=== PATIENT | female | born 1975 | race Caucasian/White ===

== ENCOUNTER 2022-06-21 17:27 | Emergency (ER) | payer MEDICAID, SELFPAY ==
[2022-06-21 17:41] VITALS: BP 116/82; PULSE 99; RESP 18; TEMP 37.1; O2SAT 97; BMI 32.5
[2022-06-21 18:27] LABS: Lactate Sepsis w/Reflex* 0.8 mmol/L (0.5-1.9)
[2022-06-21 18:30] LABS: Basophils Absolute Auto 0.04 K/uL (0.00-0.30); Basophils Percent Auto 0.4 % (0.0-3.0); Eosinophils Absolute Auto 0.33 K/uL (0.00-0.50); Eosinophils Percent Auto 3.1 % (0.0-7.0); Hematocrit 40.7 % (33.0-51.0); Hemoglobin* 13.6 gm/dL (12.0-16.0); Immature Granulocytes Abs Auto 0.02 K/uL (0.00-0.30); Lymphocytes Percent Auto 17.5 % (20-44); Mean Corpuscular HGB Conc 33 gm/dL (32-36); Mean Corpuscular Hemoglobin 32 pg (26-34); Mean Corpuscular Volume 95 fL (80-100); Monocytes Percent Auto 8.3 % (0.0-11.0); Neutrophils Absolute Auto 7.57 K/uL (1.7-7.0); Neutrophils Percent Auto 70.5 % (42.0-72.0); Platelet Count* 370 K/uL (140-440); RDW Coefficient of Variation % 13.1 % (11.5-15.5); White Blood Count* 10.73 K/uL (4.50-11.00)
[2022-06-21 18:35] LABS: Slide Review Reflex No
[2022-06-21 18:42] LABS: Chloride* 107 mmol/L (96-114); Potassium* 4.3 mmol/L (3.6-5.1); Sodium* 138 mmol/L (135-149)
[2022-06-21 18:44] LABS: Bilirubin Total* 0.5 mg/dL (0.1-1.5); Carbon Dioxide* 26 mmol/L (20-32); Est. Creatinine Clearance* 78.53; Estimated Glomerular Filt Rate 69 ml/min
[2022-06-21 18:45] LABS: Alanine Aminotransferase* 16 U/L (4-35); Alkaline Phosphatase* 89 U/L (40-150); Aspartate Amino Transferase* 21 U/L (12-35); Blood Urea Nitrogen* 15 mg/dL (5-24); Glucose* 95 mg/dL (60-115); Total Protein* 7.3 g/dL (6.0-8.3)
[2022-06-21 18:46] LABS: Calcium* 8.7 mg/dL (8.4-10.6)
--- NOTE | 2022-06-21 19:17 | ED_ITS ---
HPI - Abdominal Pain General Chief Complaint: Abdominal Pain Stated Complaint: Diverticulitis Pain Time Seen by Provider: 06/21/22 17:51 Source: patient and family Mode of arrival: ambulatory Limitations: no limitations History of Present Illness HPI narrative: 47yo female with h/o recently diagnosed (and treated) diverticulitis that presents with abdominal pain in the LLQ, well localized. Patient describes the p ain as sharp, stabbing in nature. The patient reports the pain has been persistent for 1.5days, with recurrence one night prior to presentation after advancing diet and eating tomatoes the day prior to presentation. The patient also reports history of bloating and gas, but she denies nausea, vomiting, or constipation. The patient has recently been treated for the diverticulitis and was placed on augmentin. The patient reports taking medication for the last several days with improvement in symptoms. The patient reports not taking OTC medication. The patient is able to tolerate PO intake, but definitely worsened with advancing and inflammatory foods. The patient reports eating worsens symptoms. The patient states that she has had no known sick contacts, no recent changes in diet, no travel. Related Data Home Medications Medication Instructions Recorded Confirmed amoxicillin 875 mg-potassium tab 06/21/22 clavulanate 125 mg tablet gabapentin 600 mg tablet mg 06/21/22 levothyroxine 175 mcg tablet mcg 06/21/22 Allergies Allergy/AdvReac Type Severity Reaction Status Date / Time metronidazole [From Flagyl] Allergy Verified 06/21/22 17:41 Review of Systems Const Denies: fever, chills, fatigue or malaise ENMT Denies: throat pain or difficulty swallowing Cardio Denies: chest pain or shortness of breath with exertion Resp Denies: shortness of breath or cough GI Reports: abdominal pain and diarrhea (loose stools noted); Denies: nausea, vomiting, heartburn, constipation, bloating, belching, excessive passing of gas, difficulty swallowing, feeling full early, change in bowel habits or blood in stool Denies: painful urination, urinary frequency, urinary urgency or blood in urine Neuro Denies: headache Endo Denies: fatigue Exam Const: Vital Signs, click to edit/add: Vital Signs - 24 hr 06/21/22 17:41 Temperature 98.7 F Pulse Rate [Right Pulse Oximeter] 99 Respiratory Rate 18 Blood Pressure [Ri ght Upper Arm] 116/82 Pulse Oximetry 97 Oxygen Delivery Me thod Room Air Documenting provider has reviewed patient's vital signs: yes Common normals: no apparent distress, oriented x3, no limitations, healthy appearing, alert and well nourished General appearance: cooperative, comfortable and well developed; not in distress Orientation/consciousness: Yes awake, Yes oriented to person, Yes oriented to place and Yes oriented to time HENMT: Common normals: normocephalic and head/scalp atraumatic Head and scalp: normocephalic and atraumatic Face and sinus: normal facial exam (limited by masking) Eye: Common normals: EOMs intact bilaterally General eye: normal appearance of both eyes Resp: Common normals: normal respiratory effort, no retractions, no use of accessory muscles and clear to auscultation bilaterally Effort & inspection: able to speak in complete sentences Auscultation: clear to auscultation bilaterally Cardio: Common normals: regular rate, regular rhythm, S1 normal heart sound, S2 normal heart sound, no gallops, no clicks and no murmurs Rate: regular rate Rhythm: regular rhythm Heart sounds: S1 normal and S2 normal GI: Common normals: Normal to inspection, nondistended, normoactive bowel sounds present and soft to palpation Palpation: soft and tender (LLQ) Details: LLQ : Common normals: no CVA tenderness Bladder/kidney exam: no CVA tenderness Back & Pelvis: Common normals: no CVA tenderness Extremity: Common normals: normal to inspection, full ROM and no clubbing, cyanosis or edema Neuro: Common normals: oriented x3, CN's II-XII intact bilaterally, moves all extremities, no focal motor deficits and no sensory deficits noted Sensorium/orientation: awake, alert, oriented to person, oriented to place and oriented to time Gait (neuro): normal gait Sensory exam: double simultaneous stimulation for sensation normal Motor exam: no movement abnormalities noted Psych: Common normals: mental status grossly normal, thought process normal and speech normal Appearance: grossly normal Attitude: calm Speech: normal speech Thought process: normal thought process Thought content: normal thought content Attention/concentration: attention grossly intact Memory/cognition: memory grossly intact Insight: insight good Judgement: judgment good Skin: Common normals: no rashes or lesions noted General skin exam: no rashes or lesions noted Course Course Hospital Course: Jocelynn presented to the emergency department for further evaluation of recurrent pain in the setting of being treated for diverticulitis. She has advanced her diet to include inflammatory foods such as tomatoes and noted severe discomfort afterward. Patient states she has been taking her antibiotics as directed. She was doing well while on clear and advanced to a bland diet. When she attempted to advance to routine, typical intake she noted increase in pain and discomfort. She has had normal bowel sounds, bowel movements, and has been passing gas without difficulty. She denies other acute concerns or complaints. She had laboratory studies to confirm no recurrence of inflammatory condition with negative findings noted. She has required no additional treatment in the the [facility] ency department and reports her pain is well controlled at present. She was re- educated on slow advance of dietary intake and to return if she has new or worsening concerns. She was not image during this encounter, however, she was advised to return if she has worsening concerns for re-evaluation and consideration of imaging. Vital Signs Vital signs: Initial Vital Signs Temperature 98.7 F 06/21/22 17:41 Temperature Source Temporal Artery Scan 06/21/22 17:41 Pulse Rate 99 06/21/22 17:41 Respiratory Rate 18 06/21/22 17:41 Blood Pressure 116/82 06/21/22 17:41 Blood Pressure Mean 93 06/21/22 17:41 Blood Pressure Position Sitting 06/21/22 17:41 Pulse Oximetry 97 06/21/22 17:41 Oxygen Delivery Method 06/21/22 17:41 Vital Signs Temperature 98.7 F 06/21/22 17:41 Pulse Rate 99 06/21/22 17:41 Respiratory Rate 18 06/21/22 17:41 Blood Pressure 116/82 06/21/22 17:41 Pulse Oximetry 97 06/21/22 17:41 Oxygen Delivery Method 06/21/22 17:41 Temperature 98.7 F 06/21/22 17:41 Pulse Rate 99 06/21/22 17:41 Respiratory Rate 18 06/21/22 17:41 Blood Pressure 116/82 06/21/22 17:41 Pulse Oximetry 97 06/21/22 17:41 Oxygen Delivery Method 06/21/22 17:41 MDM - Abdominal Pain MDM Narrative Medical decision making narrative: During the evaluation of this patient consider multiple differential diagnosis considerations. The life-threatening differential diagnoses considered include: Appendicitis, aortic aneurysm, mesenteric ischemia, bowel perforation, volvulus, and bowel obstruction. Other differential diagnoses include but are not limited to: Inflammatory bowel disease, cholecystitis, pancreatitis, hepatitis, gastritis, GERD, diverticulitis, peptic ulcer disease, pyelonephritis/UTI, renal colic/stone, diseases of the genitourinary system and reproductive system, as well as the other etiologies. Lab Data Attestation: I reviewed the patient's lab results. Labs: Lab Results 06/21/22 06/21/22 06/21/22 Range/Units 18:15 18:15 18:15 WBC 10.73 (4.50-11.00) K/uL RBC 4.30 (4.00-5.20) m/uL Hgb 13.6 (12.0-16.0) gm/dL Hct 40.7 (33.0-51.0) % MCV 95 (80-100) fL MCH 32 (26-34) pg MCHC 33 (32-36) gm/dL RDW Coeff of Radha 13.1 (11.5-15.5) % Plt Count 370 (140-440) K/uL Neut % (Auto) 70.5 (42.0-72.0) % Lymph % (Auto) 17.5 L (20-44) % [place] % (Auto) 8.3 (0.0-11.0) % Eos % (Auto) 3.1 (0.0-7.0) % Baso % (Auto) 0.4 (0.0-3.0) % Neut # (Auto) 7.57 H (1.7-7.0) K/uL Lymph # (Auto) 1.90 (0.90-2.90) K/uL [place] # (Auto) 0.90 (0.00-0.90) K/UL Eos # (Auto) 0.33 (0.00-0.50) K/uL Baso # (Auto) 0.04 (0.00-0.30) K/uL Abs Immat Gran (auto) 0.02 (0.00-0.30) K/uL Sodium 138 (135-149) mmol/L Potassium 4.3 (3.6-5.1) mmol/L Chloride 107 (96-114) mmol/L Carbon Dioxide 26 (20-32) mmol/L BUN 15 (5-24) mg/dL Creatinine 1.0 (0.5-1.5) mg/dL Estimated Creat Clear 78.53 Estimated GFR 69 ml/min Glucose 95 (60-115) mg/dL Venous Lactic Acid (Serial Order) Calcium 8.7 (8.4-10.6) mg/dL Total Bilirubin 0.5 (0.1-1.5) mg/dL AST 21 (12-35) U/L ALT 16 (4-35) U/L Alkaline Phosphatase 89 (40-150) U/L Total Protein 7.3 (6.0-8.3) g/dL Albumin 4.0 (3.3-5.0) g/dL Discharge Plan Discharge Clinical Impression: Diverticulitis Patient Disposition: Home, Self-Care Condition: Stable Instructions: Diverticulitis Diet (ED) Additional Instructions: Thank you for choosing [facility] for your care today. Drink plenty of water and consider using electrolyte replacement like Gatorade or substitute. Add probiotic of choice - Apto, [employer], or Kefir - or substitute. Eat a bland diet and advance as tolerated. Diet should include bananas, rice, applesauce, and toast (BRAT diet) and other bland foods. Slowly advance diet as tolerated. Consider the use of a daily coconut oil supplement, apple cider vinegar supplement, or magnesium oxide. If your symptoms worsen or persist, consider further evaluation and treatment including labs and imaging. I recommend calling primary care for follow-up in the next 3-5 days for reevaluation of symptoms. If new or worsening symptoms develop or you have any concerns in the meantime, please call your primary care clinic or return to the ER for re-evaluation. Activity Level: Activity as Tolerated Discharge Diet: Clear Liquid Diet Detail: Advance as tolerated, avoid inflammatory foods such as dairy, pork, citrus, and tomato based. Prescriptions: No Action levothyroxine 175 mcg tablet Label Comments: TAKE 1 TABLET BY MOUTH BEFORE BREAKFAST. gabapentin 600 mg tablet Label Comments: TAKE ONE TABLET (600MG) BY MOUTH THREE TIMES DAILY amoxicillin-pot clavulanate 875-125 mg tablet Label Comments: TAKE ONE TABLET BY MOUTH IN THE MORNING AND IN THE EVENING WITH MEALS FOR 10 DAYS Follow Up/Referrals: Provider,Not a Local [Primary Care Provider] - Stand Alone Forms: [employer] Info Instructions
[2022-06-21 19:44] VITALS: BP 124/90; PULSE 90; RESP 16; O2SAT 98
== END 2022-06-21 19:54 | disposition home or self-care (01) ==
PROVIDERS: Emergency Provider Family Medicine; PCP Family Medicine
DX: K57.92 Diverticulitis of intestine, part unspecified, without perforation or abscess without bleeding (principal)
CPT/HCPCS: 36415; 80053; 85025; 99282; 99283

== ENCOUNTER 2024-01-16 12:46 | Outpatient (CLI) | payer BC, SELFPAY ==
--- NOTE | 2024-01-16 13:00 | MR_ITS ---
[address] [address] Phone:?[phone] Fax:?[phone] Referring Physician Information: Kishore Lang M.D. [id number] [facility] [address] Phone:?[phone] Fax:?[phone] Patient:Ralph Torre D.O.B:?1975 Sex:?Female Phone:?[phone] [facility] MRN:?[id number] Exam Date:?01/16/2024 EXAM: MRI of the RIGHT KNEE, without contrast CLINICAL INFORMATION: Female, 48 years old, with right knee pain INDICATION: Evaluate for meniscus tear, arthritis PRIOR SURGERY: None reported. PLAIN FILMS: None available. COMPARISONS: Knee MRI 07/25/2022. TECHNICAL INFORMATION: Using a 1.5T MR scanner and a localizing surface coil: sagittals: PD, PDFS coronals: PD, T2FS axials: PD, PDFS SEDATION: None CONTRAST: None FINDINGS: Knee joint: Effusion: Moderate size right knee effusion. Popliteal cyst: None. Loose bodies: None. Subcutaneous and extra-articular soft tissues: Mild prepatellar subcutaneous soft tissue edema. Ligaments: ACL: Intact ACL anteromedial and posterolateral bundles, without sprain or tear. PCL: Intact PCL, without acute or chronic injury. MCL: Thickening of the proximal superficial MCL, consistent with residua of incomplete sprain injury, similar to prior. LCL: Intact LCL, without injury. Posterolateral corner: No posterolateral corner soft tissue injury. Popliteus, biceps femoris, iliotibial band, popliteofibular ligament and lateral gastrocnemius are intact. Posteromedial corner: No posteromedial corner soft tissue injury. Semimembranosus, pes anserine tendons and posterior oblique ligament are without injury, tendinopathy or bursitis. Extensor mechanism: Patellar tendon: Intact, without tendinopathy. Quadriceps tendon: Intact, without tendinopathy. Retinacula: Medial and lateral retinacula are intact. Fat pads: Unremarkable infrapatellar Hoffa's, quadriceps and prefemoral fat pads. Medial compartment: Medial meniscus: Medial meniscus is abnormal in appearance. There is truncation/radial tearing involving the inner third at the level of the body segment with torn meniscal tissue flipped and displaced inferiorly into the medial gutter, measuring approximately 7 mm. Meniscal tissue is peripherally displaced approximately 7 mm, as well. This is new compared to the prior exam. Previously seen horizontal oblique undersurface tearing to the posterior horn is progressed, with superimposed poorly defined degeneration and fraying not present, as well. The posterior root of the meniscus is intact. Medial femoral condyle: Broad-based grade 3 chondral thinning along the weightbearing surface of the medial femoral condyle, progressed from the prior exam. Minimal peripheral osseous spurring. Medial tibial plateau: Grade 2 chondral thinning along the central weightbearing medial tibial plateau, overall similar to prior. Lateral compartment: Lateral meniscus: Poorly defined intrasubstance and horizontal undersurface tearing along the posterior horn/root of the lateral meniscus (sagittal series 7 images 13-14). The meniscofemoral ligament appears intact. Superimposed complex tearing at the level of the body segment with superior and inferior articular surface component (coronal series 9 image 22). Lateral femoral condyle: Chondromalacia with grade II/III chondral thinning along the central weightbearing surface of the lateral femoral condyle. Lateral tibial plateau: Grade II/III chondromalacia along the posterior lateral tibial plateau. Patellofemoral joint: Patella: Diffuse grade 2 chondral thinning of the patellar articular cartilage is shallow fraying of the central median ridge. Trochlea: Small region of grade III chondromalacia of the mid lateral trochlea measuring 1.2 x 1.1 cm with underlying cystic change and marrow edema. Proximal tibiofibular joint: Unremarkable, without evidence of ligament sprain injury, joint effusion or adjacent marrow edema. Bones: No stress/occult fractures or other marrow edema/pathology. IMPRESSION: 1. Truncation/radial tearing of the body segment medial meniscus with torn meniscal tissue flipped and displaced inferiorly into the medial gutter, measuring up to 7 mm, with additional 7 mm peripheral meniscal extrusion at the level of the body. Progressed horizontal oblique undersurface tearing along the posterior horn of the meniscus. 2. Short segment tearing of the body and posterior horn/root of the lateral meniscus, new from the prior exam. 3. Mild toward moderate medial compartment degenerative change, progressed from prior. 4. Mild lateral and patellofemoral joint degenerative change. 5. Suspected residua of chronic superficial MCL sprain injury. No acute cruciate or collateral ligament pathology. 6. Moderate size knee joint effusion. KME Electronically signed on 01/18/2024 8:24:00 AM by Edita La M.D.
== END 2024-01-16 12:47 | disposition home or self-care (01) ==
LOC: MRI 12:47
PROVIDERS: PCP Family Medicine; Visit Provider Orthopaedic Surgery
DX: M25.561 Pain in right knee (principal); S83.241A Other tear of medial meniscus, current injury, right knee, initial encounter; S83.411A Sprain of medial collateral ligament of right knee, initial encounter; M25.461 Effusion, right knee; M17.11 Unilateral primary osteoarthritis, right knee; M23.300 Other meniscus derangements, unspecified lateral meniscus, right knee; M23.303 Other meniscus derangements, unspecified medial meniscus, right knee
CPT/HCPCS: 73721

== ENCOUNTER 2024-02-06 07:30 | Outpatient (RCR) | payer BC, SELFPAY | END 2024-06-05 23:59 | disposition home or self-care (01) | PROVIDERS: PCP Family Medicine; Visit Provider Student in an Organized Health Care Education/Training Program | DX: M99.05 Segmental and somatic dysfunction of pelvic region (principal); R33.9 Retention of urine, unspecified; R15.0 Incomplete defecation; R39.198 Other difficulties with micturition; R10.32 Left lower quadrant pain; Z98.890 Other specified postprocedural states; Z51.89 Encounter for other specified aftercare | CPT/HCPCS: 97110; 97112; 97162 ==

== ENCOUNTER 2024-05-01 11:00 | Outpatient (RCR) | payer BC, SELFPAY | END 2024-08-29 23:59 | disposition home or self-care (01) | PROVIDERS: PCP Family Medicine; Visit Provider Family Medicine | DX: M25.561 Pain in right knee (principal); G62.9 Polyneuropathy, unspecified; M17.0 Bilateral primary osteoarthritis of knee; S83.231A Complex tear of medial meniscus, current injury, right knee, initial encounter; M16.11 Unilateral primary osteoarthritis, right hip; S81.011A Laceration without foreign body, right knee, initial encounter; K66.0 Peritoneal adhesions (postprocedural) (postinfection); M25.551 Pain in right hip; R26.9 Unspecified abnormalities of gait and mobility; R53.1 Weakness; Z51.89 Encounter for other specified aftercare | CPT/HCPCS: 97110; 97140; 97162; J0330; J1100; J2371; J2405; J2704; J2710; J3010 ==

== ENCOUNTER 2024-09-24 08:30 | Outpatient (RCR) | payer BC, SELFPAY | END 2025-03-28 23:59 | disposition home or self-care (01) | PROVIDERS: PCP Family Medicine; Visit Provider Surgery | DX: M17.11 Unilateral primary osteoarthritis, right knee (principal); N31.9 Neuromuscular dysfunction of bladder, unspecified; Z51.89 Encounter for other specified aftercare | CPT/HCPCS: 97140; 97163; 97530 ==

== ENCOUNTER 2024-09-25 08:15 | Outpatient (RCR) | payer BC, SELFPAY | END 2025-01-23 23:59 | disposition home or self-care (01) | PROVIDERS: PCP Family Medicine; Visit Provider Marriage & Family Therapist | DX: M54.2 Cervicalgia (principal); G43.909 Migraine, unspecified, not intractable, without status migrainosus; Z74.09 Other reduced mobility; Z51.89 Encounter for other specified aftercare | CPT/HCPCS: 97140; 97162 ==

== ENCOUNTER 2024-10-15 11:13 | Day surgery (SDC) | payer BC, SELFPAY ==
[2024-10-15] VITALS (21 sets, daily range): BP systolic 84–172; BP diastolic 58–130; PULSE 64–88; RESP 14–22; TEMP 35.6–36.3; O2SAT 93–97; BMI 42.0
--- OUTSIDE RECORDS SUMMARY | 2024-10-15 11:16 | XMS_ITS | Continuity of Care Document ---
Author Organization [facility], [facility] Address [address] [place] [address] [address] [place] [address] Care Team Providers Care Recruiting Assistant Name Role Phone JOSE E COLON Primary Care Provider [facility] Primary Care Pro vider Assessment Encounter Date Assessment Date Assessment LastModified by Organization Details LastModified Time 09/02/2024 09/02/2024 49-year-old female who underwent sigmoid resection, bilateral salpingectomy , left oophorectomy, left ureteral stent placement and cystoscopy 11/17/2021 here for follow up evaluation of urinary retention. [email or web address] Not available 09/02/2024 10:16:58 Plan of Treatment Reminders Order Date Submit Date Provider Last Modified By Organization Details Last Modified Time Details Appointments None record ed. Lab None record ed. Referral None record ed. Procedures None record ed. Surgeries None record ed. Imaging None record ed. Medication Orders None record ed. Patient TargetsNo targets recorded. Patient InstructionsNo instructions recorded. Reason for Referral None Reported. Procedures Surgical History Date Name Laterality Status Provider Name and Address Organization Details Recorded Time 11/03/20 23 Urodynamic Studies completed Brian Ryan MD [address] [facility],[address], [place], [address], [facility] 11/07/2023 07:03:51 08/08/20 23 Bladder Scan completed Rere Isaacs [facility] 08/08/2023 10:45:02 06/20/20 23 Past Data Reviewed completed REBEKAH MADSEN [address] [facility],[address], [place], [address], [facility] 04/27/2023 11:32:23 06/20/20 23 In and Out Catheterization- female completed Dung Alvarado PA-C [address] [facility],[address], [place], [address], [facility] 06/20/2023 11:55:57 10/13/20 Diagnostic sigmoidoscopy completed Not Available Health Note 06/19/2023 18:16:10 10/06/20 Diagnostic colonoscopy completed Not Available Health Note 04/27/2023 15:48:15 Cystoscopy completed Not Available Health Note 1 11/12/2021 18:59:51 Partial hysterectomy completed Not Available Health Note 06/19/2023 18:16:10 Imaging Results None recorded. Procedure Notes None recorded. Medical Equipment None Reported. Allergies No known drug allergies Medications Name Sig Start Date Stop Date Status Note LastModified by Organization Details LastModified Time cetirizin e 5 mg-pseudo ephedrine ER 120 mg tablet,ex tended release,1 2hr TAKE 1 TABLET BY MOUTH EVERY 12 HOURS. active Not Available Not Available No t Available tolterodi ne ER 2 mg capsule,e xtended release 24 hr TAKE 1 CAPSULE (2 MG) BY MOUTH ONCE DAILY. 09/02 completed HN: Patient reports no longer taking Not Available Not Available Not Available methocarb lorena 500 mg tablet TAKE 1-2 TABLET BY MOUTH THREE TIMES A DAY NEEDED FOR PAIN THIS MED MAY CAUSE DROWSINE SS. DO NOT WORK OR DRIVE ON THIS MEDICATI ON UNTIL AFFECTS/ KNOWN. 09/02 completed Not Available Not Available Not Available terbinafi ne HCl 1 % topical cream APPLY TOPICALL Y TWICE A DAY active Not Available Not Available No t Available levothyro xine 175 mcg tablet TAKE 1 TABLET BY MOUTH BEFORE BREAKFAS T. 09/02 completed HN: Patient reports no longer taking Not Available Not Available Not Available bupropion HCl SR 150 mg tablet,12 hr sustained -release TAKE 1 TABLET BY MOUTH TWICE A DAY active Not Available Not Available No t Available acetamino phen 325 mg tablet TAKE 2 TABLETS BY MOUTH EVERY 4 HOURS IF NEEDED FOR PAIN OR [id number]. 5F (FOR MILD PAIN) MAX ACETAMIN OPHEN DOSE 4000MG IN 24 HRS. 06/20 completed HN: Patient reports no longer taking Not Available Not Available Not Available gabapenti n 600 mg tablet TAKE 1 TABLET (600 MG) BY MOUTH TWO TIMES DAILY. FOR DAYTIME USE ONLY 09/02 completed HN: Patient reports no longer taking Not Available Not Available Not Available venlafaxi ne 75 mg tablet TAKE 1 TABLET (75 MG) BY MOUTH TWO TIMES DAILY. active Not Available Not Available No t Available nicotine 14 mg/24 hr daily transderm al patch APPLY 1 PATCH ON DRY, CLEAN, HAIRLESS SKIN ONCE DAILY FOR 10 DOSES. 06/20 completed HN: Patient reports no longer taking HN: Patient reports no longer taking Not Available Not Available Not Available Effexor XR 75 mg capsule,e xtended release 75mg 2/day active Not Available Not Available No t Available fluconazo le 150 mg tablet TAKE 1 TABLET (150 MG) BY MOUTH ONE TIME FOR 1 DOSE. active HN: Patient reports no longer taking Not Available Not Available Not Available hydrocodo ne 5 mg-acetam inophen 325 mg tablet TAKE 1 TABLET BY MOUTH EVERY 6 HOURS IF NEEDED FOR PAIN. MAX ACETAMIN OPHEN DOSE 4000 MG IN 24 HRS. 09/02 completed HN: Patient reports no longer taking Not Available Not Available Not Available Nystop 100,000 unit/gram topical powder APPLY 1 STRIP TOPICALL Y TO AFFECTED AREA(S) THREE TIMES DAILY. active Not Available Not Available No t Available ondansetr on HCl 8 mg tablet TAKE 1 TABLET (8 MG) BY MOUTH TWO TIMES DAILY. active Not Available Not Available No t Available ondansetr on HCl 4 mg tablet TAKE ONE TABLET (4 MG) BY MOUTH TWO TIMES DAILY. 06/20 completed HN: Patient reports no longer taking Not Available Not Available Not Available gabapenti n 400 mg capsule TAKE ONE CAPSULE (400MG) BY MOUTH EVERY MORNING AND MIDDAY active Not Available Not Available No t Available meclizine 12.5 mg tablet TAKE 1 TABLET (12.5 MG) BY MOUTH 3 TIMES DAILY IF NEEDED FOR VERTIGO. active Not Available Not Available No t Available metronida zole 500 mg tablet TAKE ONE TABLET (500 MG) BY MOUTH TWO TIMES DAILY FOR 10 DAYS. 06/20 completed HN: Patient reports no longer taking Not Available Not Available Not Available ciproflox acin 500 mg tablet TAKE 1 TABLET (500 MG) BY MOUTH TWO TIMES DAILY. 06/20 completed HN: Patient reports no longer taking Not Available Not Available Not Available Nicotrol 10 mg inhalatio n cartridge INHALE 10 MG BY MOUTH EVERY HOUR WHILE AWAKE NEEDED FOR NICOTINE CRAVING active Not Available Not Available No t Available tramadol 50 mg tablet TAKE 1 TABLET (50 MG) BY MOUTH EVERY 6 HOURS IF NEEDED FOR PAIN FOR UP TO 3 DAYS. 06/20 completed HN: Patient reports no longer taking HN: Patient reports no longer taking Not Available Not Available Not Available acetamino phen 500 mg tablet TAKE 2 TABLETS (1,000 MG) BY MOUTH EVERY 6 HOURS. MAX ACETAMIN OPHEN DOSE 4000MG IN 24 HRS. 09/02 completed Not Available Not Available Not Available acetamino phen ER 650 mg tablet,ex tended release TAKE 2 TABLETS (1,300 MG) BY MOUTH EVERY 8 HOURS. MAX ACETAMIN OPHEN DOSE: 4000MG IN 24 HRS. active Not Available Not Available No t Available ketorolac 10 mg tablet TAKE 1 TABLET (10 MG) BY MOUTH EVERY 6 HOURS IF NEEDED FOR PAIN FOR UP TO 6 DAYS. MAXIMUM OF 40 MG IN 24 HOURS. 06/20 completed HN: Patient reports no longer taking Not Available Not Available Not Available pantopraz ole 20 mg tablet,de layed release TAKE ONE TABLET (20MG) BY MOUTH TWICE A DAY BEFORE MEALS. active Not Available Not Available No t Available Celebrex 200 mg capsule 200mg 2/day 09/02 completed HN: Patient reports no longer taking Not Available Not Available Not Available oxycodone -acetamin ophen 5 mg-325 mg tablet TAKE ONE TABLET BY MOUTH EVERY 6 HOURS IF NEEDED FOR PAIN. MAX ACETAMIN OPHEN DOSE 4000MG IN 24 HRS. 06/20 completed Not Available Not Available Not Available erythromy brennon 250 mg tablet THE DAY BEFORE SURGERY, TAKE 4 TABLETS BY MOUTH AT 2 PM, 3 PM, AND 10 PM. 06/20 completed HN: Patient reports no longer taking Not Available Not Available Not Available Kristalos e 10 gram oral packet MIX 1 PACKET (10 G) IN LIQUID THEN TAKE BY MOUTH TWO TIMES DAILY. 06/20 completed HN: Patient reports no longer taking Not Available Not Available Not Available famotidin e 20 mg tablet 06/20 completed Not Available Not Available Not Available tolterodi ne 2 mg tablet 2mg 1/day 06/20 completed Not Available Not Available Not Available tamsulosi n 0.4 mg capsule TAKE 1 CAPSULE BY MOUTH EVERY DAY FOR 90 DAYS. 09/02 completed HN: Patient reports no longer taking Not Available Not Available Not Available gabapenti n 800 mg tablet TAKE 1 TABLET (800 MG) BY MOUTH AT BEDTIME. active Not Available Not Available No t Available meclizine 25 mg tablet TAKE 1/2 TABLET (12.5MG) BY MOUTH THREE TIMES DAILY IF NEEDED FOR VERTIGO 09/02 completed HN: Patient reports no longer taking Not Available Not Available Not Available cephalexi n 500 mg capsule TAKE 1 CAPSULE (500 MG) BY MOUTH FOUR TIMES DAILY FOR 10 DAYS. 06/20 completed HN: Patient reports no longer taking Not Available Not Available Not Available pantopraz ole 40 mg tablet,de layed release TAKE ONE TABLET (40 MG) BY MOUTH ONCE DAILY. 09/02 completed HN: Patient reports no longer taking Not Available Not Available Not Available nicotine 21 mg/24 hr daily transderm al patch APPLY 1 PATCH ON DRY, CLEAN, HAIRLESS SKIN ONCE DAILY. active Not Available Not Available No t Available codeine 10 mg-guaife nesin 100 mg/5 mL oral liquid TAKE 5ML BY MOUTH AT BEDTIME IF NEEDED FOR COUGH MAX DOSE 60ML PER 24HRS 09/02 completed HN: Patient reports no longer taking Not Available Not Available Not Available levothyro xine 200 mcg tablet TAKE 1 TABLET (200 MCG) BY MOUTH BEFORE BREAKFAS T. active Not Available Not Available No t Available furosemid e 20 mg tablet 20mg 2/day 09/02 completed Not Available Not Available Not Available ergocalci ferol (vitamin D2) 1,250 mcg (50,000 unit) capsule TAKE 1 CAPSULE (50,000 UNITS) BY MOUTH EVERY MONDAY AND MONDAY . active Not Available Not Available No t Available lorazepam 1 mg tablet TAKE 2 TABLETS (2 MG) BY MOUTH ONE TIME FOR 1 DOSE. TAKE ONE TABLET PRIOR TO THE MRI MAY REPEAT TIMES ONE IN 15 MINUTES IF REQUIRED 09/02 completed HN: Patient reports no longer taking Not Available Not Available Not Available oxycodone -acetamin ophen 7.5 mg-325 mg tablet TAKE 1 TABLET BY MOUTH 3 TIMES DAILY IF NEEDED FOR PAIN. 09/02 completed HN: Patient reports no longer taking Not Available Not Available Not Available methylpre dnisolone 4 mg tablets in a dose pack TAKE BY MOUTH INSTRUCT ED PER JONH Spivey. 09/02 completed HN: Patient reports no longer taking Not Available Not Available Not Available neomycin 500 mg tablet THE DAY BEFORE SURGERY, TAKE 2 TABLETS AT 2 PM, 3 PM, AND 10 PM. 06/20 completed HN: Patient reports no longer taking HN: Patient reports no longer taking Not Available Not Available Not Available oxybutyni n chloride 5 mg tablet TAKE 1 TABLET (5 MG) BY MOUTH TWO TIMES DAILY FOR 14 DAYS. 06/20 completed HN: Patient reports no longer taking Not Available Not Available Not Available ondansetr on 4 mg disintegr ating tablet PLACE 1 TABLET (4 MG) ON THE TONGUE EVERY 8 HOURS IF NEEDED FOR NAUSEA/V OMITING. 06/20 completed HN: Patient reports no longer taking Not Available Not Available Not Available amoxicill in 875 mg-potass ium clavulana te 125 mg tablet TAKE 1 TABLET BY MOUTH IN THE MORNING AND IN THE EVENING. TAKE WITH MEALS FOR 7 DAYS 06/20 completed HN: Patient reports no longer taking HN: Patient reports no longer taking Not Available Not Available Not Available Ventolin HFA 90 mcg/actua tion aerosol inhaler INHALE 2 PUFFS BY MOUTH EVERY FOUR HOURS NEEDED active Not Available Not Available No t Available simethico ne 80 mg chewable tablet 09/02 completed HN: Patient reports no longer taking Not Available Not Available Not Available escitalop mariama 10 mg tablet TAKE 1 TABLET (10 MG) BY MOUTH EVERY MORNING. 06/20 completed Not Available Not Available Not Available escitalop mariama 20 mg tablet TAKE 1 TABLET (20 MG) BY MOUTH EVERY MORNING. 09/02 completed Not Available Not Available Not Available nitrofura ntoin monohydra te/macroc rystals 100 mg capsule TAKE 1 CAPSULE (100 MG) BY MOUTH TWO TIMES DAILY FOR 5 DAYS. active Not Available Not Available No t Available Rozerem 8 mg tablet 8mg 1/day 09/02 completed HN: Patient reports no longer taking Not Available Not Available Not Available Zofran 8mg 2/day active Not Available Not Available No t Available simethico ne SIMETHIC ONE 500 mg chewable as needed active Not Available Not Available No t Available acetamino phen 650 2/day 11/03 completed Not Available Not Available Not Available ciproflox acin 500mg 2/day 06/20 completed HN: Patient reports no longer taking Not Available Not Available Not Available gabapenti n 800mg 3/day 09/02 completed Not Available Not Available Not Available peg 3350-elec trolytes 236 gram-22.7 4 gram-6.74 gram-5.86 gram solution TAKE 4,000 ML BY MOUTH ONE TIME FOR 1 DOSE. 09/02 completed HN: Patient reports no longer taking Not Available Not Available Not Available Stool Softener- Stimulant Laxative 8.6 mg-50 mg tablet TAKE 1 TABLET BY MOUTH ONCE DAILY. active Not Available Not Available No t Available oxycodone 10 mg tablet TAKE ONE TABLET BY MOUTH EVERY 12 HOURS NEEDED FOR POST SURGICAL PAIN 06/20 completed Not Available Not Available Not Available Eye Itch Relief 0.025 % (0.035 %) drops PLACE 1 DROP INTO BOTH EYES TWO TIMES DAILY. active Not Available Not Available No t Available Lubricant Eye (PG-PEG 400) 0.4 %-0.3 % drops PLACE 1-2 DROPS INTO BOTH EYES 4 TIMES DAILY IF NEEDED FOR DRY EYES. active Not Available Not Available No t Available Antibioti c (bacitrac in zinc) 500 unit/gram topical ointment active Not Available Not Available Not Available Stimulant Laxative Plus STIMULAN T LAXATIVE As needed 06/20 completed Not Available Not Available Not Available Paxlovid 300 mg (150 mg x 2)-100 mg tablets in a dose pack TK 2 NIRMATRE LVIR TS AND 1 RITONAVI R T TOGETHER PO BID FOR 5 DAYS 09/02 completed HN: Patient reports no longer taking Not Available Not Available Not Available calcium 166.6 mg-vit D2 4.15 mcg-magne sium 83.3 mg-vit C-K2-min tablet VIT D2 50,000 mg twice a week active Not Available Not Available No t Available Vitals Date Recorded Body height Body mass index (BMI) Body weight Provider Name and Address Organization Details Last Updated DateTime 09/02/2024 182.88 cm 42 kg/m2 338908.63 g Rere Montemayor [place] - [facility] 09/02/2024 09:08:48 Social History Question Answer Notes LastModified by Organizat ion Details LastModified Time Tobacco Smoking Status Current Some Day Smoker Not Available Health Note 08/30/2024 13:44:03 Do You Have An Advance Directive? No [email or web address] Information not available 08/30/2024 What Is Your Level Of Alcohol Consumption? None [email or web address] Information not available 09/02/2024 What Is Your Level Of Caffeine Consumption? Moderate [email or web address] Information not available 08/30/2024 How Much Tobacco Do You Chew? None [email or web address] Information not available 08/30/2024 Do You Or Have You Ever Used E-cigarettes Or Vape? Never Used Electronic Cigarettes [email or web address] Information not available 08/30/2024 Race WHITE [email or web address] Information no t available 08/08/2023 Ethnicity Not /Latin o [email or web address] Information not available 08/08/2023 Preferred Language Wolof [email or web address] Information not available 08/08/2023 Number Of Pregnancies 1 [email or web address] Information not available 09/12/2022 Number Of Vaginal Deliveries 1 [email or web address] Information not available 09/12/2022 Number Of Caesarean Sections 0 [email or web address] Information not available 09/12/2022 Recreational Drug Use No [email or web address] Information not available 08/08/2023 Could You Be ? No [email or web address] Information not available 04/27/2023 Do You Have A Medical Power Of Posting Clerk? No [email or web address] Information not available 08/30/2024 What Was The Date Of Your Most Recent Tobacco Screening? 09/02/2024 [email or web address] Information not available 08/30/2024 Have You Ever Been Counseled For Unhealthy Alcohol Use? No [email or web address] Information not available 11/15/2023 What Is Your Relationship Status? Single [email or web address] Information not available 08/30/2024 Are You Sexually Active? Yes [email or web address] Information not available 08/30/2024 Do You Or Have You Ever Used Smokeless Tobacco? Never Used Smokeless Tobacco [email or web address] Information not available 08/30/2024 How Much Tobacco Do You Smoke? 1 PPW [email or web address] Information not available 08/30/2024 Do You Use Any Illicit Or Recreational Drugs? No [email or web address] Information not available 08/30/2024 Has Tobacco Cessation Counseling Been Provided? Yes [email or web address] Information not available 06/20/2023 On What Date Was Tobacco Cessation Counseling Provided? 09/02/2024 Information not available 09/02/2024 How Many Years Have You Smoked Tobacco? 35 [email or web address] Information not available 08/30/2024 Do You Or Have You Ever Used Any Other Forms Of Tobacco Or Nicotine? No [email or web address] Information not available 06/20/2023 How Many Days In The Past Year Have You Consumed 4 Or More Drinks? 0 [email or web address] Information no t available 08/30/2024 Sex: Unknown Functional Status None recorded. Mental Status None recorded. Family History Relationship Description Onset Age of this Age Resolved Age Notes LastModified by Organization Details LastModified Time Father Family history of diabetes mellitus [email or web address] Not available 2021 18:59:49 Father Family history of cardiac disorder [email or web address] Not available 2021 18:59:49 Paternal Grandmother Family history of diabetes mellitus [email or web address] Not available 2021 18:59:49 Medical History Condition Response Diabetes N Sexually Transmitted Infection N Bleeding Disorder N Other N High Blood Pressure N Kidney Stones Y Cancer N Depression Y Lung Disease N High Cholesterol Y GERD/Acid Reflux Y Heart Disease N Gynecological History Statement/Question Response If Post Menopausal, Age at Menopause 48 Leaking urine with intercourse N Hormone Therapy N Sexually Active? Y Pain with intercourse Y Obstetrics History GPAL:G 0 P 0 0 0 0 Immunizations Vaccine Type Date Status Provider Name and Address Organization Details Recorded Time SARS-COV-2 (COVID-19) vaccine, UNSPECIFIED 11/06/2019 completed Not Available Health Note 08/30/2024 13:44:07 SARS-COV-2 (COVID-19) vaccine, UNSPECIFIED 04/20/2020 completed Not Available [facility] 11/15/2023 09:17:44 SARS-COV-2 (COVID-19) vaccine, UNSPECIFIED 09/06/2020 completed Not Available [facility] 11/15/2023 09:17:44 Influenza, split virus, quadrivalent, preservative [facility]21[facility] 10:34:57 Influenza, split virus, quadrivalent, preservative 07/27/2017 [facility] 10:34:57 Influenza, split virus, quadrivalent, preservative 07/29/2015 [facility] 10:34:57 COVID-19, mRNA, LNP-S, PF, 100 mcg/0.5mL dose or 50 mcg/0.25mL dose 12/16/2020 [facility] 10:34:57 COVID-19, mRNA, LNP-S, PF, 100 mcg/0.5mL dose or 50 mcg/0.25mL dose 01/13/2021 [facility] 10:34:57 Tdap 07/18/2016 [facility]23 10:34:57 Tdap 08/14/2006 [facility] 10:34:57 Influenza, split virus, trivalent, preservative 07/18/2012 [facility] 10:34:57 Influenza, split virus, trivalent, preservative 08/14/2006 [facility] 10:34:57 Influenza, split virus, trivalent, preservative 08/17/2011 completed LAZARUS Vinson [facility] 06/20/2023 10:34:57 Influenza, split virus, quadrivalent, PF 07/15/2014 completed LAZARUS Vinson [facility] 06/20/2023 10:34:57 Influenza, split virus, quadrivalent, PF 07/24/2013 completed LAZARUS Vinson [facility] 06/20/2023 10:34:57 Past Encounters Encounter ID Performer Location Encounter Start Date Encounter Closed Date Diagnosis/Indication Diagnosis SNOMED-CT Code Diagnosis ICD10 Code [id number] Dung Alvarado PA-C [facility] [address] [facility] e [address] [place] [phone] 09/02/2024 09:04:04 09/02/2024 15:34:45 Retention of urine 720601497 R33.9 Health Concerns Section Related Observation LastModified by Organization Detai ls LastModified Time None Recorded Concern Status LastModified by Organization Details LastModified Time None Recorded Payers Encounter Date Sequence Insurance Name Policy Number Policy Robbins Covered Member ID Robbins Member ID Guarantor Name 09/02/2024 1 [id number]MED[place] - [place]MO) [id number] Jocelynn Torre [id number] Jocelynn Torre Notes Date Note Type Note Provider Name and Address Organization Details Recorded Time 09/02/2024 text/html 09/02/24Prior to conducting our video visit, the patient was apprised of the risks, benefits and alternatives to video visits including but not limited to poor video quality, interrupted visits due to technological limitations, delays in medical evaluation and treatment due to deficiencies or failures of equipment, failure of security protocols resulting in a breach of privacy of personal medical information and a lack of access to complete medical records resulting in not fully informed decisions. It was not possible for the patient to sign the privacy regulations, HIPAA release and assignment of benefits forms. The patient was given the opportunity to ask questions about these policies and gave verbal acknowledgement and approval of these policies as well as to hold this meeting by video. Lastly, the patient agreed to allowing their medication history to be pulled from a national pharmacy database to facilitate and coordinate their care. Time spent: 12 mins -Patient reports that symptoms have been the same, feeling of incomplete emptying-She is half way through PFPT, doing exercies at home, don't know how helpful they have been-Had one UTI since last visit. 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 In the absence of neurological disease, this is voiding dysfunction. She has a clinical history of pelvic surgery and ureteral stenting. Pelvic Floor PT/Biofeedback advised.4) Mild incomplete emptying, though office testing was normal <50 ml. This is likely related to the testing environment.-pt still feels that she does not completely empty . she denies UTI symptoms 08/08[birth year]50-yea r-old female who underwent sigmoid resection, bilateral salpingectomy, left oophorectomy, left ureteral stent placement and cystoscopy 11/17/2021 here for follow up evaluation of urinary retention. -Since 03/28 she has noticed feeling of incomplete emptying of the bladder. She feels as though she only empties a tablespoon at a time. She was started on Detrol by her surgeon on 03/20/2023. She has also been taking furosemide according to her primary doctor which was prescribed to help initiation with urination according to patient. CT urogram on 03/07/2023 was unremarkable.-Stopped detrol and furosemide last visit. she reports no difference in her symptoms. Before, she did feel as though there was some urgency but now none is present. Still empties tablespoon at a time.-Currently she does not feel as though she may have an infection, dysuria and abdominal discomfort PVR:33ml Dung Alvarado PA-C [address] [place] [address],[address], [place], [address], [place] [facility] 09/02/2024 10:18:15 OBGyn Episode No OBEpisode recorded.
[2024-10-15] MEDS: ACETAMINOPHEN 500 MG TABLET 1000 MG PO ×2 (11:30→18:30)
[2024-10-15] MEDS: SODIUM CHLORIDE 0.9 % (FLUSH) 10 ML SYRINGE IVF (12:00)
[2024-10-15] MEDS: OXYCODONE (CR) 10 MG TAB.ER.12H PO (12:00)
[2024-10-15] MEDS: 0.9 % SODIUM CHLORIDE 500 ML 500 ML 100 ML IV ×2 (12:00→15:13)
[2024-10-15] MEDS: MIDAZOLAM HCL 1 MG/ML inj IVP (13:07)
[2024-10-15] MEDS: fentaNYL 100 MCG/2 ML inj IVP (13:07)
--- NOTE | 2024-10-15 13:19 | SUR.PREOP ---
TIME?OUT:?1306 PT/RN/MDA?VERIFICATION?OF?SURGICAL?SITE,?PROCEDURE,?AND?CONSENT OBTAINED?PRIOR?TO?INVASIVE?PROCEDURE.
[2024-10-15] MEDS: CEFAZOLIN 2 GM INJ IVP (13:52)
[2024-10-15] MEDS: TRANEXAMIC ACID 100 MG/ML INJ 1000 MG IV (13:53)
--- NOTE | 2024-10-15 14:35 | P.NB_ITS ---
Nerve Block Nerve Block Time Seen by Provider: 13:10 Date Seen: 10/15/24 Type of block requested by surgeon for post-operative analgesia: adductor canal Side: right Time out performed: Yes Verification of patient name: Yes Verification of date of : Yes Site marking: site marked Name of person performing procedure: Ilir Continuous monitoring Was continuous monitoring of O2 sat, B/P, personal banking assistant, recorded every 15 minutes?: Yes Procedure Checklist: sterile prep, needles and gloves Ultrasound guided. Images saved: Yes Medications given in 5ml increments after negative aspiration: Marcaine %: 0.25 mL: 15 Needle gauge: 20 Precedex (mcg): 25 Patient tolerated procedure well: Yes Block Charges Block Charge (with Pro Fee): Femoral Nerve Use of Ultrasound Machine for Block: Yes- US Guidance/pain block
--- NOTE | 2024-10-15 14:35 | W.ANESCHARGE ---
Anesthesia Charges Start Date/Time Anesthesia Start Date: 10/15/24 Anesthesia Start Time: 13:41 Stop Date/Time Anesthesia Stop Date: 10/15/24 Anesthesia Stop Time: 15:51
--- NOTE | 2024-10-15 14:36 | P.NB_ITS ---
Nerve Block Nerve Block Time Seen by Provider: 13:10 Date Seen: 10/15/24 Type of block requested by surgeon for post-operative analgesia: geniculars Side: right Time out performed: Yes Verification of patient name: Yes Verification of date of : Yes Site marking: site marked Name of person performing procedure: Ilir Continuous monitoring Was continuous monitoring of O2 sat, B/P, panel monitor, recorded every 15 minutes?: Yes Procedure Checklist: sterile prep, needles and gloves Ultrasound guided. Images saved: Yes Medications given in 5ml increments after negative aspiration: Marcaine %: 0.25 mL: 9 Needle gauge: 25 Patient tolerated procedure well: Yes Block Charges Block Charge (with Pro Fee): Genicular Nerve Block
--- NOTE | 2024-10-15 15:25 | CRLHL7_ITS ---
For Patients: As a result of the Cures Act, medical imaging exams and procedure reports are released immediately into your electronic medical record. You may view this report before your referring provider. If you have questions, please contact your health care provider. Indication: Postop TKA Technique: Two views right knee Findings/Impression: Hardware from a right total knee arthroplasty is in satisfactory position. Bone alignment is normal. No sign of acute fracture. Postop changes are within normal limits. Dictated by Alpesh Bowles MD @ 10/16/2024 9:06:02 AM (Electronically Signed)
--- NOTE | 2024-10-15 15:28 | P.ORPRC_ITS ---
Procedure Note Date of procedure: 10/15/24 Procedure: PREOPERATIVE DIAGNOSIS: Right knee osteoarthritis POSTOPERATIVE DIAGNOSIS: Right knee osteoarthritis NAME OF OPERATION: Right total knee arthroplasty SURGEON: Kishore Lang MD CHEMIST FOOD: ADARSH Quinteros ANESTHESIA: Spinal ESTIMATED BLOOD LOSS: 0 mL COMPLICATIONS: None SPECIMENS: None DRAINS: None PREOPERATIVE ANTIBIOTICS: Ancef 3 grams, antibiotic impregnated cement IMPLANTS: 1. [employer] revision CRS # 8 posterior stabilized femur, 14 mm x 50 mm cemented stem 2. # 6 revision CRS fixed-bearing tibia, 14 mm x 50 mm cemented stem 3. # 8 posterior stabilized, 5 mm fixed-bearing polyethylene 4. 41 patella INDICATIONS: The patient is a 49-year-old with a longstanding history of severe, unrelenting right knee pain secondary to end-stage (grade IV) right knee osteoarthritis. Despite appropriate nonoperative management, including activity modification, anti-inflammatories, [id number]-nqyytos pain medication, bracing, physical therapy, and injections they continue to have pain and disability. Operative intervention was offered. The risks, benefits and expected outcomes were discussed in detail. These included but were not limited to: Infection, bleeding, injury to blood vessel or nerve, venous thromboembolism. All questions were answered to their satisfaction. Use of an assistant film editor was necessary throughout the case for patient positioning and safety, soft tissue retraction, and closure. A modifier 22 should be added to this case. Because the patient weighs 140 kg with a BMI of 42 stemmed components were used to decrease the risk of aseptic loosening. This added time and cost to complete the case. PROCEDURE: Spinal anesthesia was administered. The patient was placed supine on the operating table. The assistant film editor made sure the patient was positioned appropriately. The lower extremity was prepped and draped in the usual sterile fashion. The limb was exsanguinated with the Wayne bandage. The pneumatic tourniquet was inflated to 300 mmHg. A standard anterior incision was made with the knee in flexion. Subcutaneous dissection was sharply taken through fascial layer #1. Full-thickness medial and lateral flaps were elevated. The assistant film editor retracted the soft tissues and protected them throughout the case. A standard subvastus approach was made. The patella was subluxed. The infrapatellar fat pad was debrided. The menisci and cruciate ligaments were sharply d?brided. Marginal osteophytes were d?brided with the rongeur. The drill was used to penetrate the femoral canal. The canal was aspirated and irrigated with pulse lavage. The intramedullary femoral guide was placed for a 5-degree valgus cut, removing 10 mm off the distal femur. The saw was used to make the cut. Whitesides line and the trans epicondylar axis were marked. The femoral sizing guide was pinned onto the distal femur. Three degrees of external rotation nicely parallels the transepicondylar axis. Pins were placed for posterior referencing. The four-in-one cutting guide was pinned onto the distal femur. The anterior, posterior, and chamfer cuts were made. The assistant film editor protected the collateral ligaments. The revision trial was placed. The box cuts were made. The drill was used x2. The stemmed, boxed trial was placed and was an excellent fit. Attention was then turned to the proximal tibia. The extramedullary tibial guide was placed for a neutral varus/valgus cut with 5 degrees of posterior slope, removing 2 mm based off the medial tibial surface. The assistant film editor protected the collateral ligaments and the neurovascular bundle. The saw was used to make the cut. Trial components were placed. The knee was nicely balanced in both flexion and extension. The trial components were removed. The tray was placed in appropriate rotation, parallel to our tibial cutting pins. It was pinned by the assistant film editor and the drill x2 was used. The stemmed tibial trial was placed. The punch was used. The tray was removed. The punch was used again. Attention was then turned to the patella. [place] patellar thickness was 24.5 mm. The lobster claw resection guide was used with the 9.5 mm praveen. The saw was used to make the cut. Drill holes were made by the assistant film editor. The trial was placed and was an excellent fit. Cancellous surfaces were irrigated with pulse lavage and thoroughly dried by the assistant film editor. We cemented the tibial component, then the femoral component. We impacted the 5 mm polyethylene onto the tibial tray. The knee was brought into full extension. We then cemented the patellar component. Excessive cement was removed. The cement was allowed to harden. The knee was taken through a range of motion and was found to be nicely balanced in both flexion and extension. The patella tracks centrally. The assistant film editor did a three minute dilute Betadine solution soak. The assistant film editor irrigated the wound with 3 liters of normal saline via pulse lavage. The assistant film editor reapproximated the extensor mechanism with #1 Vicryl in an interrupted [id number] fashion. The assistant film editor then ran the extensor mechanism with a #1 PDO Stratafix. The assistant film editor closed the subcutaneous tissues with a 3-0 Stratafix and the skin with a running 3-0 Stratafix in a subcuticular fashion. Glue was used to seal the skin. The assistant film editor placed a dry dressing. Sponge and needle counts were correct x2. The patient tolerated the procedure well. There were no apparent complications. They were carefully transferred to the hospital bed and taken to the postanesthesia care unit in satisfactory condition. PLAN: The patient will be mobilized with physical therapy. Aspirin will be used for DVT prophylaxis. They will be discharged to home once medically appropriate.
--- NOTE | 2024-10-15 15:56 | W.ANESCHARGE ---
Anesthesia Charges Start Date/Time Anesthesia Start Date: 10/15/24 Anesthesia Start Time: 13:41 Stop Date/Time Anesthesia Stop Date: 10/15/24 Anesthesia Stop Time: 15:51
[2024-10-15] MEDS: OXYCODONE 5 MG TABLET PO (17:57)
--- NOTE | 2024-10-15 17:58 | P.IMCN_ITS ---
Date of Consult Patient: [facility] Patient Consult date: 10/15/24 Requesting Physician: Orthopedics Primary Care Provider: Reshma Otero, Consult Narrative Reason for consult: Medical management Narrative: Jocelynn Torre is a 49 year old female past medical history significant for migraines, hypothyroidism, GERD, neuropathy, polyarthralgia, previous narcotic dependence is POD#0 s/o right total knee arthroplasty, Dr. Lang. There have been no perioperative complications or nursing concerns reported. Estimated total blood loss documented as 0ml. Updated and reviewed the active medical problems, past medical history, past surgical history, social history, allergies and medications in our electronic EMR. Currently, patient complains of significant right knee pain, 10/15, wrapping around the knee. No radiating pain. Just had an oxycodone and will be receiving Dilaudid. Denies headache or dizziness. Denies chest pain or shortness of breath. Tolerating orals without nausea vomiting. Review of Systems Narrative: REVIEW OF SYSTEMS: Complete review of systems performed and negative unless otherwise stated in HPI or below. PFSH PFS Medical History (Updated 10/15/24 @ 20:21 by Greta Miranda PA-C) Neuropathy ?G62.9 - Polyneuropathy, unspecified (ICD-10) Migraines ?G43.909 - Migraine, unspecified, not intractable, without status migrainosus (ICD-10) Polyarthralgia ?M25.50 - Pain in unspecified joint (ICD-10) Disorder of uterus ?N85.9 - Noninflammatory disorder of uterus, unspecified (ICD-10) Hypothyroid ?E03.9 - Hypothyroidism, unspecified (ICD-10) Arthritis ?M19.90 - Unspecified osteoarthritis, unspecified site (ICD-10) Reflux esophagitis ?K21.00 - Gastro-esophageal reflux disease with esophagitis, without bleeding (ICD-10) Surgical History Status post bladder repair ?Z98.890 - Other specified postprocedural states (ICD-10) S/P BSO (bilateral salpingo-oophorectomy) ?Z90.722 - Acquired absence of ovaries, bilateral (ICD-10) History of exploratory laparotomy (10/13/22) ?Z98.890 - Other specified postprocedural states (ICD-10) History of breast biopsy ?Z98.890 - Other specified postprocedural states (ICD-10) Social History What is your current living situation?: I presently have a place to live Problems where you live: no known problems In the past 12 months, utilities in danger of being shut off: yes In the past 12 mos, have been you worried that your food would run out before you had money to buy more?: sometimes true In the past 12 mos, the food you bought just didn't last and you didn't have money to buy more?: sometimes true Highest level of school completed/degree received: Bachelor's degree Smoking Status: Current every day smoker What tobacco products do you use: cigarettes Smoking packs per day: 0.5 Smoking cigarettes per day: 10.0 Years smoked: 30 Smoking pack-years: 15.00 Smoking quit date/years: <= 15 years ago Do you use any of these nicotine containing products: None Second hand tobacco smoke exposure: Yes How often do you have a drink containing alcohol: never How often do you have six or more drinks on one occasion: Never AUDIT-C Alcohol total score: 0 Non-prescribed substance use: denies use Caffeine: Yes How often does anyone, including family, friends and others, physically hurt you : never How often does anyone, including family, friends and others, insult or talk down to you: never How often does anyone, including family, friends and others, threaten you with harm: never How often does anyone, including family, friends and others, scream or curse at you: never service: No Health Related Social Needs: food insecurity (Z59.41) Meds Home Medications and Allergies Home Medications ?Medication ?Instructions ?Recorded ?Confirmed ?Type bupropion HCl 150 mg tablet,12 hr 150 mg PO BID 01/10/24 10/15/24 History sustained-release cetirizine 5 mg-pseudoephedrine ER 1 tab PO Q12H PRN 01/10/24 10/15/24 History 120 mg tablet,extended release,12hr ergocalciferol (vitamin D2) 1,250 1,250 mcg PO 2XW 01/10/24 10/15/24 History mcg (50,000 unit) capsule levothyroxine 200 mcg tablet 200 mcg PO DAILY 01/10/24 10/15/24 History nicotine 21 mg/24 hr daily 1 patch topical DAILY 01/10/24 10/15/24 History transdermal patch acetaminophen 650 mg 1,300 mg PO Q8H 10/08/24 10/15/24 History tablet,extended release albuterol sulfate 90 mcg/actuation 1 - 2 puff inhalation Q4H PRN 10/08/24 10/15/24 History aerosol inhaler (Ventolin HFA) gabapentin 800 mg tablet 400 - 800 mg PO TID 10/08/24 10/15/24 History ketoconazole 2 % topical cream 1 applic topical BID 10/08/24 10/15/24 History meclizine 25 mg tablet 25 mg PO TID PRN 10/08/24 10/15/24 History methocarbamol 500 mg tablet 500 - 1,000 mg PO TID PRN 10/08/24 10/15/24 History pantoprazole 40 mg tablet,delayed 40 mg PO BID 10/08/24 10/15/24 History release (Protonix) peg 400-propylene glycol 0.4 %-0.3 1 - 2 drp ophthalmic (eye) QID PRN 10/08/24 10/15/24 History % eye drops (Systane (propylene glycol)) propranolol 80 mg tablet 80 mg PO BID 10/08/24 10/15/24 History sennosides 8.6 mg-docusate sodium 1 tab PO BID 10/08/24 10/15/24 History 50 mg tablet (Stool Softener-Stimulant Laxative) sumatriptan succinate 50 mg tablet 50 mg PO Q2H PRN 10/08/24 10/15/24 History tamsulosin 0.4 mg capsule (Flomax) 0.4 mg PO DAILY 10/08/24 10/15/24 History venlafaxine 150 mg 150 mg PO QPM 10/08/24 10/15/24 History capsule,extended release 24 hr Allergies Allergy/AdvReac Type Severity Reaction Status Date / Time ibuprofen Allergy Vomiting Verified 08/14/24 08:46 metronidazole (From Flagyl) Allergy Verified 08/14/24 08:46 Exam Narrative: Exam Narrative: PHYSICAL EXAM General: Experiencing right knee pain HEENT: Normocephalic, atraumatic, sclera white, EOMI, oral mucosa moist Cardiovascular: RRR, S1S2. No pitting edema Pulmonary: CTA bilaterally without rhonchi, rales, expiratory wheezes. No dyspnea Neurological: Alert, answering questions appropriately, cranial nerves intact, no focal findings Extremities: No gross joint deformity or swelling. Postoperative dressing in place, dry. Neurovascularly intact Skin: Warm, dry. Const: Vital Signs, click to edit/add: Vital Signs - 24 hr 10/15/24 11:50 10/15/24 13:08 10/15/24 13:10 Temperature 97.2 F L Pulse Rate 74 73 73 Respiratory Rate 16 16 16 Blood Pressure 138/106 H 152/106 H 160/130 H Pulse Oximetry 97 96 95 Oxygen Delivery Me thod Room Air Nasal Cannula Nasal Cannula Oxygen Flow Rate 2 2 10/15/24 13:15 10/15/24 13:30 10/15/24 15:46 Temperature 97.1 F L Pulse Rate 71 67 73 Respiratory Rate 16 16 16 Blood Pressure 145/91 H 136/101 H 84/58 L Pulse Oximetry 96 95 96 Oxygen Delivery Me thod Nasal Cannula Nasal Cannula Room Air Oxygen Flow Rate 2 2 10/15/24 15:55 10/15/24 16:00 10/15/24 16:05 Temperature 97.3 F L Pulse Rate 73 74 69 Respiratory Rate 18 18 14 Blood Pressure 94/64 109/61 99/71 Pulse Oximetry 97 94 95 Oxygen Delivery Me thod Room Air Room Air Room Air Oxygen Flow Rate 10/15/24 16:10 10/15/24 16:15 10/15/24 16:20 Temperature 97.4 F L Pulse Rate 69 64 67 Respiratory Rate 16 16 14 Blood Pressure 105/69 107/72 103/76 Pulse Oximetry 94 95 Oxygen Delivery Me thod Room Air Room Air Room Air Oxygen Flow Rate 10/15/24 16:53 Temperature 97.1 F L Pulse Rate 66 Respiratory Rate 18 Blood Pressure 110/74 Pulse Oximetry 93 Oxygen Delivery Me thod Room Air Oxygen Flow Rate Assessment and Plan Assessment and plan (1) Osteoarthritis of right knee: Status: Acute Total Time Spent Total Time Spent: Total time spent caring for the patient today was 45 minutes. This includes time spent for the visit reviewing the chart, time spent during the visit, time spent after the visit and documentation and planning in coordination of care.
[2024-10-15] MEDS: HYDROmorphone 0.5 mg/0.5 ml inj IVP (18:31)
--- NOTE | 2024-10-15 19:57 | PC.NURSE ---
Nursing Care Hours: [id number] Pt this shift arrived from PACU alert and oriented. Pain increased to 6/10, oral meds given but pain increased to 12/10 before they could be effective and IV pain med given. Pt trying to bend knee with pillows. Education provided on keeping leg straight. Attempted to elevate leg with 3 pillows but pt moved pillows to support under knee again. Education on keeping leg straight reinforced. Pt c/o of pain to posterior knee, ice applied. Bed recovery operator provided and allowed some relief. IV SL.
[2024-10-15] MEDS: CEFAZOLIN 3 GM in 0.9 % SODIUM CHLORIDE Mini-bag 100 ML IVPB (20:16)
[2024-10-15] MEDS: ASPIRIN 81 MG TABLET EC PO (20:22)
[2024-10-15] MEDS: VENLAFAXINE ER 75 MG CAPSULE 150 MG PO (20:22)
[2024-10-15] MEDS: OMEPRAZOLE 20 MG CAPSULE DR 40 MG PO (20:23)
[2024-10-15] MEDS: buPROPion HCL SR 150 MG TAB PO (20:23)
[2024-10-16 00:40] VITALS: BP 163/109; PULSE 84; RESP 18; O2SAT 84
[2024-10-16] MEDS: ACETAMINOPHEN 500 MG TABLET 1000 MG PO ×2 (01:16→06:23)
[2024-10-16] MEDS: OXYCODONE 5 MG TABLET PO ×5 (01:16→11:19)
--- NOTE | 2024-10-16 01:20 | PC.NURSE ---
nursing- this RN had been in room several times. Pt with kristina c/o
--- NOTE | 2024-10-16 01:24 | PC.NURSE ---
nursing- this RN has been in pt room multiple times with various c/o and requests. 0100- pt to BR with much encouragement secondary to pain. Encouraged to take pain meds as ordered and maybe sooner. Did ambulate to BR with walker and steady gait, voiding with out diff. States she has one step at home and has a toilet riser. Talked about PT and to take pain meds before. She has not had a joint replacement before and probably needs future surgeries. Pt encouraged not to put pillow under knee secondary to blood pooling. She does wish to keep ankle pumps on. refreshed ice packs
[2024-10-16 02:50] VITALS: BP 163/100; PULSE 83; RESP 20; O2SAT 95
[2024-10-16] MEDS: CEFAZOLIN 3 GM in 0.9 % SODIUM CHLORIDE Mini-bag 100 ML IVPB (04:14)
[2024-10-16] MEDS: LEVOTHYROXINE 100 MCG TABLET 200 MCG PO (06:24)
[2024-10-16 07:42] LABS: Basophils Absolute Auto 0.03 K/uL (0.00-0.30); Basophils Percent Auto 0.3 % (0.0-3.0); Eosinophils Absolute Auto 0.09 K/uL (0.00-0.50); Hematocrit 41.5 % (33.0-51.0); Hemoglobin* 13.8 gm/dL (12.0-16.0); Immature Granulocytes Abs Auto 0.02 K/uL (0.00-0.30); Immature Granulocytes Pct Auto 0.2 %; Lymphocytes Absolute Auto 1.81 K/uL (0.90-2.90); Lymphocytes Percent Auto 20.2 % (20-44); Mean Corpuscular HGB Conc 33 gm/dL (32-36); Mean Corpuscular Hemoglobin 32 pg (26-34); Mean Corpuscular Volume 97 fL (80-100); Monocytes Percent Auto 8.4 % (0.0-11.0); Neutrophils Absolute Auto 6.26 K/uL (1.7-7.0); Neutrophils Percent Auto 69.9 % (42.0-72.0); Platelet Count* 278 K/uL (140-440); RDW Coefficient of Variation % 13.1 % (11.5-15.5); White Blood Count* 8.96 K/uL (4.50-11.00)
[2024-10-16 08:01] LABS: Slide Review Reflex No
[2024-10-16 08:03] LABS: Potassium* 4.1 mmol/L (3.6-5.1); Sodium* 134 mmol/L (135-149)
[2024-10-16 08:06] LABS: Blood Urea Nitrogen* 20 mg/dL (7-30); Creatinine* 1.2 mg/dL (0.5-1.5); Estimated Glomerular Filt Rate 55 ml/min
[2024-10-16 08:25] VITALS: BP 143/104; PULSE 84; RESP 16; TEMP 36.3; O2SAT 94
[2024-10-16] MEDS: SENNOSIDES 1 TAB TABLET 2 TAB PO (08:27)
[2024-10-16 08:28] LABS: INR 0.97 (0.91-1.10); Prothrombin Time 13.4 Seconds
[2024-10-16] MEDS: ASPIRIN 81 MG TABLET EC PO (08:28)
[2024-10-16] MEDS: GABAPENTIN 100 MG CAPSULE 400 MG PO (08:28)
[2024-10-16] MEDS: OMEPRAZOLE 20 MG CAPSULE DR 40 MG PO (08:28)
[2024-10-16] MEDS: buPROPion HCL SR 150 MG TAB PO (08:28)
[2024-10-16] MEDS: PROPRANOLOL 20 MG TABLET 80 MG PO (09:11)
[2024-10-16] MEDS: hydrOXYzine pamoate 25 MG CAPSULE PO (09:11)
--- NOTE | 2024-10-16 09:14 | PM.ORPN ---
Subjective Subjective Time Seen by Provider: 08:20 Date Seen: 10/16/24 Principal diagnosis: Day 1 s/p right TKA Interval history: Jocelynn is resting uncomfortably in her bed. She c/o 15 out of 10 right knee pain and states she only slept one hour last night. , Jorge A, is present during our visit and will be helping Jocelynn at home. Patient denies chest pain, fever, chills, nausea and vomiting. Admits to normal amount of shortness of breath and distal numbness/tingling related to her chronic peripheral neuropathy. Jocelynn has concerns with pain management at home. She has a history of chronic hydrocodone use and explains she has built up a tolerance to this medication. Nursing staff explain she did well ambulating approximately an hour ago with her walker. Ortho Exam Narrative Exam Narrative: Incision/Dressing: Dressing appears clean and dry. No drainage present. Mepilex intact. Right knee appears moderately swollen with likely hemarthrosis but supple with no obvious erythema, fluctuance or excessive warmth. No ecchymosis or erythematous streaking. Warmth around the wound is appropriate. Ice is being utilized as needed. CMS: Intact distally with 2+ Dorsalis pedis and Posterior Tibial pulses. 5/5 motor strength dorsal and plantar flexion. Confirmed sensation distally. Calf: Bilateral calves are supple, with no swelling, erythema, discoloration or coolness to the touch. Diffuse tenderness right lower extremity. Denies pinpoint area of calf tenderness. Constitutional: Patient is alert and oriented x3. Patient is in no acute distress and converses without labored breathing. Patient is able to make decisions and demonstrates good insight. Patient is pleasant and cooperative. Affect is full range and appropriate for the circumstances. Const Vital Signs, click to edit/add: Vital Signs - 24 hr 10/15/24 11:50 10/15/24 13:08 10/15/24 13:10 Temperature 97.2 F L Pulse Rate 74 73 73 Pulse Rate [Left Pulse Oximeter] Respiratory Rate 16 16 16 Blood Pressure 138/106 H 152/106 H 160/130 H Blood Pressure [Left Arm] Pulse Oximetry 97 96 95 Oxygen Delivery Method Room Air Nasal Cannula Nasal Cannula Oxygen Flow Rate 2 2 10/15/24 13:15 10/15/24 13:30 10/15/24 15:46 Temperature 97.1 F L Pulse Rate 71 67 73 Pulse Rate [Left Pulse Oximeter] Respiratory Rate 16 16 16 Blood Pressure 145/91 H 136/101 H 84/58 L Blood Pressure [Left Arm] Pulse Oximetry 96 95 96 Oxygen Delivery Method Nasal Cannula Nasal Cannula Room Air Oxygen Flow Rate 2 2 10/15/24 15:55 10/15/24 16:00 10/15/24 16:05 Temperature 97.3 F L Pulse Rate 73 74 69 Pulse Rate [Left Pulse Oximeter] Respiratory Rate 18 18 14 Blood Pressure 94/64 109/61 99/71 Blood Pressure [Left Arm] Pulse Oximetry 97 94 95 Oxygen Delivery Method Room Air Room Air Room Air Oxygen Flow Rate 10/15/24 16:10 10/15/24 16:15 10/15/24 16:20 Temperature 97.4 F L Pulse Rate 69 64 67 Pulse Rate [Left Pulse Oximeter] Respiratory Rate 16 16 14 Blood Pressure 105/69 107/72 103/76 Blood Pressure [Left Arm] Pulse Oximetry 94 95 Oxygen Delivery Method Room Air Room Air Room Air Oxygen Flow Rate 10/15/24 16:53 10/15/24 16:53 10/15/24 17:00 Temperature 97.1 F L 97.2 F L Pulse Rate 66 68 73 Pulse Rate [Left Pulse Oximeter] Respiratory Rate 18 18 18 Blood Pressure 110/74 109/76 127/79 Blood Pressure [Left Arm] Pulse Oximetry 93 94 94 Oxygen Delivery Method Room Air Room Air Room Air Oxygen Flow Rate 10/15/24 17:15 10/15/24 17:30 10/15/24 18:00 Temperature Pulse Rate 72 81 80 Pulse Rate [Left Pulse Oximeter] Respiratory Rate 18 Blood Pressure 118/92 H 122/85 123/90 H Blood Pressure [Left Arm] Pulse Oximetry 94 95 94 Oxygen Delivery Method Room Air Room Air Room Air Oxygen Flow Rate 10/15/24 18:30 10/15/24 19:45 10/15/24 19:45 Temperature 96.1 F L Pulse Rate 88 66 Pulse Rate [Left Pulse Oximeter] 66 Respiratory Rate 18 18 Blood Pressure 153/116 H 172/105 H Blood Pressure [Left Arm] Pulse Oximetry 94 95 Oxygen Delivery Method Room Air Room Air Oxygen Flow Rate 10/15/24 19:45 10/15/24 20:40 10/15/24 21:40 Temperature 97.2 F L Pulse Rate 84 86 Pulse Rate [Left Pulse Oximeter] Respiratory Rate 18 22 18 Blood Pressure 118/85 114/70 Blood Pressure [Left Arm] Pulse Oximetry 95 93 94 Oxygen Delivery Method Room Air Room Air Oxygen Flow Rate 10/16/24 00:40 10/16/24 02:50 10/16/24 08:25 Temperature 97.3 F L Pulse Rate 84 Pulse Rate [Left Pulse Oximeter] 83 84 Respiratory Rate 18 20 16 Blood Pressure 163/109 H Blood Pressure [Left Arm] 163/100 H Pulse Oximetry 84 L 95 94 Oxygen Delivery Method Room Air Room Air Room Air Oxygen Flow Rate Assessment and Plan Assessment and plan (1) Status post total knee replacement, right: Problem details: DOS: 10/15/24; Dr. Lang Status: Acute Plan - Complete 23 hour perioperative antibiotics. - PT/OT consults for education and assistance. - Weight bear as tolerated with a walker for assistance. - Prescribed analgesics as needed. Patient is content with current narcotic medications. Minimize narcotic pain medication use; wean off and discontinue as soon as possible. - DVT prophylaxis: aspirin 81 mg BID x 30 days. Also, frequent ambulation and ankle pumps when sedentary. - Social consult for discharge planning. - Anticipate patient will be discharged to home this afternoon if the patient remains medically stable, pain is controlled and is safe with ambulation. - Return to clinic in 1 week for a wound check. Mepilex dressing will be removed at this appointment. Remove sooner if dressing becomes saturated. - Return to clinic in [address] Lang. - Phone Orthopedics with any questions or concerns. [phone].
[2024-10-16 09:40] VITALS: O2SAT 94
[2024-10-16] MEDS: LIDOCAINE 5% PATCH 1 PATCH TRANSDERMA (10:04)
--- NOTE | 2024-10-16 10:56 | PC.SOCIAL ---
Discharge planning: general ii farmworker provided the pt with information on Advance Care Planning per her request. Pt was thankful for the information. Pt also plans to discharge home today from the hospital and reports no concerns about that. Social work to follow-up as needed.
== END 2024-10-16 11:39 | disposition home or self-care (01) ==
LOC: OR 11:14 → MEDSURG 11:24
PROVIDERS: PCP Family Medicine; Visit Provider Orthopaedic Surgery
PROC: (CPT 27447; principal; 2024-10-15 13:00)
DX: M17.11 Unilateral primary osteoarthritis, right knee (principal); G89.18 Other acute postprocedural pain; G62.9 Polyneuropathy, unspecified; K21.00 Gastro-esophageal reflux disease with esophagitis, without bleeding; F11.90 Opioid use, unspecified, uncomplicated; E03.9 Hypothyroidism, unspecified; F17.210 Nicotine dependence, cigarettes, uncomplicated
CPT/HCPCS: 27447; 01402; 36415; 64447; 64454; 73560; 76942; 82565; 84132; 84295; 84520; 85025; 85610; 97110; 97116; 97162; 97165; 97530; 97535; A9270; C1776; J0690; J1171; J2250; J2405; J2704; J2795; J3010; J3490; J7030; S0106

== ENCOUNTER 2024-12-05 07:30 | Outpatient (RCR) | payer BC, SELFPAY ==
--- NOTE | 2024-10-21 11:52 | PT.OPEX ---
PT [place] Out[facility] Eval PT [facility] Outpatient Eval Start: 10/21/24 08:44 Freq: Status: Active Protocol: Document 10/21/24 08:45 KLV (Rec: 10/21/24 10:48 KLV [id number]) E-signed By Kiersten Allison, PT Physical Therapy Outpatient Evaluation Insurance Information Recert Due Date 01/15/25 Insurance Name Medicaid Medical Diagnosis Encounter for other orthopedic aftercare: R TKA DOS 10/15/24 Treating Diagnosis Right knee pain, limited knee ROM, muscle weakness, antalgic gait Referring MD Lang Subjective Subjective Jocelynn reports to PT s/p 6 days R TKA DOS 10/15/24. Pain level was quite high following surgery but has gradually gotten better and sleeping slightly longer stretches at night. Having to take 2 oxycodone every 6 hours. Sleeping in bed. Ambulating with 2WW; uses 4WW for longer distances and standing/cooking at baseline. Denies change in radicular symptoms or calf pain (baseline neuropathy). Has been icing regularly however has not been elevating , just resting with her knee as straight as she can. Boyfriend, Jorge A, has been helpful around the house who does some self cares for her at baseline. PMH: migraines, hypothyroidism , GERD, neuropathy, polyarthralgia, bladder repair after abdominal surgery, smoker, h/o narcotic dependence Pain Comments 07/16 worst Date of Last Physician Visit 10/16/24 Date of Next Physician Visit 10/23/24 Date of Surgery (If applicable) 10/15/24 Current Work Status Unemployed Objective Other/Pertinent Objective Knee ROM: -R 12-66 -L 5-115 Incision covered with bandage: no s/s of infection or DVT No bruising noted Quad set: fair SLR: 2x5 with min assist and ~ 10-15 deg extension lag Circumferential measurements: R -6cm proximal to patella 59 -mid patella 55.5 -6cm distal to patella 48 Functional Test Performed & Score LEFS: Assessment Assessment/Impression Pt presents with signs and symptoms consistent with s/p R TKA. DOS: 10/15/24. Current ROM: 12-66. Quad set fair and SLR 2x5 with min assist and 10 -15 deg extension lag. Anticipated deficits/ impairments in swelling, pain, ROM, and strength. No s/s of infection or DVT. Pt would benefit from skilled PT interventions to facilitate return to PLOF and ambulating with least restrictive device. Primary Functional Limitations Walking, standing, sitting, sleeping, dressing, bathing Plan of Care Rehabilitation Potential Good Physical Therapy Goals By 4 weeks Pt will be able to ascend/ descend 1 flight of stairs in order to ambulate in community . Pt will demonstrate at least 5 -105 deg knee ROM in order to perform all ADLs including don /doffing shoes/socks By 8 weeks (11/24/21) Pt will exhibit 9 pt improvement in LEFS Outcome measure to demonstrate functional improvement and progress towards goals. Pt will tolerate gradual progression back to ADLs with <2/10 pain Patient will ambulate in community with least restrictive device with normal mechanics. Treatment Plan/Direct Interventions Gait Training,Ice/Cold/ Vasopneumatic,Joint Mobilization,Manual Therapy, Neuromuscular Re-ed,Self-Care/ Home Management,Therapeutic Activities,Therapeutic Exercises Frequency/Duration 2x/wk for 6-8 weeks Patient Will Be Discharged From Therapy Completion of LTG(s), Independent w/HEP, Independently Progressing Evaluation Billing Untimed Code Treatment Minutes 15 Complexity Moderate Certification Information Initial Certification Date 10/21/24 Ending Certification Date 01/15/25 Provider Signature Required Yes Provider Signature Shows Agreement With POC & Medical Necessity Physician NPI Number Write NPI# Here Physician Comment/Change : Physician Signature & Date Requested Please Sign/Date Here
--- OUTSIDE RECORDS SUMMARY | 2024-11-07 10:11 | XMS_ITS | Clinical Summary ---
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 Comments Code Status Discussion: Discussed * Full Code Date Activated Date Inactivated Comments 08/09/2023 7:41 AM 08/09/2023 4:01 PM Question Answer Comments Code Status Discussion: Discussed * Full Code Date Activated Date Inactivated Comments 10/14/2022 8:52 AM 10/19/2022 6:42 PM Question Answer Comments Code Status Discussion: Reviewed Preferences * Full Code Date Activated Date Inactivated Comments 08/10/2022 9:44 PM 08/13/2022 12:12 PM Question Answer Comments Code Status Discussion: Reviewed Preferences Care Teams Chore Tender Relationship Specialty Start Date End Date Reshma Otero DO [address] [place] [address] PCP - General Family Practice 03/26/15
== END 2025-04-04 23:59 | disposition home or self-care (01) ==
PROVIDERS: PCP Family Medicine; Visit Provider Orthopaedic Surgery
DX: Z47.89 Encounter for other orthopedic aftercare (principal); M17.11 Unilateral primary osteoarthritis, right knee; Z96.651 Presence of right artificial knee joint; Z51.89 Encounter for other specified aftercare
CPT/HCPCS: 97016; 97110; 97140; 97162

== ENCOUNTER 2024-12-18 08:17 | Outpatient (RCR) | payer BC, SELFPAY | END 2025-04-17 23:59 | disposition home or self-care (01) | PROVIDERS: PCP Family Medicine; Visit Provider Family Medicine | DX: R10.9 Unspecified abdominal pain (principal); M54.2 Cervicalgia; G43.909 Migraine, unspecified, not intractable, without status migrainosus; G89.29 Other chronic pain; M62.89 Other specified disorders of muscle; R39.14 Feeling of incomplete bladder emptying; R53.1 Weakness; Z51.89 Encounter for other specified aftercare | CPT/HCPCS: 97140; 97163 ==